=== PATIENT | female | born 1955 | race Caucasian/White ===

== ENCOUNTER → 2017-10-14 | Outpatient (CLI) | payer OTHER ==
[~2017-10-14] MED LIST: APAP650 PO; ASPIRIN325 PO; ATIVAN0.5 MG PO; CALCIUM PO; CLOBETASOL EMOL15 GM TOP; COLACE100 MG PO; ELIQUIS2.5 MG PO; HYDROCODON-ACE1 EAC7; KEFLEX500 MG PO; MAGNESIUM; METAXALONE800 MG; MULTIVITAMIN PO; NAPROSYN500 MG; NEURONTIN 300300 M1 PO; NIZORAL120 ML TOP; NORCO 10-325 T1 EACH PO; OXYCODONE HCL 55 MG PO; PERCOCET PO; PHENERGAN 25 MG25 M1 PO; PRILOSEC40 MG PO; SYNTHROID25 MCG; TRAMADOL 50 MG50 MG PO; TRIAMCINOLONE A80 G2 TOP; VITAMIN D2000 UNIT PO; XARELTO10 MG PO
== END ==
LOC: M.MRI 10-12 09:45
DX: M50.221 Other cervical disc displacement at C4-C5 level (principal); M25.78 Osteophyte, vertebrae

== ENCOUNTER → 2017-12-16 | Outpatient (CLI) | payer OTHER | LOC: M.MRI 12:32 | DX: S76.012A Strain of muscle, fascia and tendon of left hip, initial encounter (principal); M16.12 Unilateral primary osteoarthritis, left hip; M25.452 Effusion, left hip; R59.9 Enlarged lymph nodes, unspecified; Z96.642 Presence of left artificial hip joint; X58.XXXA Exposure to other specified factors, initial encounter; Y93.89 Activity, other specified; Y92.89 Other specified places as the place of occurrence of the external cause; Y99.8 Other external cause status ==

== ENCOUNTER 2018-10-26 10:15 | Emergency (ER) | payer OTHER ==
[~2018-10-26] VITALS: Ht 149.9 cm; Wt 78.9 kg
[2018-10-26 11:09] LABS: ABSOLUTE BASOPHILS 0.1 thou/uL (0.0-0.2); ABSOLUTE EOSINOPHILS 0.1 thou/uL (0.0-0.7); ABSOLUTE LYMPHOCYTES 2.3 thou/uL (0.8-5.3); ABSOLUTE MONOCYTES 0.5 thou/uL (0.0-1.2); ABSOLUTE NEUTROPHILS 5.5 thou/uL (1.6-8.1); BASOPHILS 0.9 %; EOSINOPHILS 1.5 %; HEMATOCRIT 42.6 % (37.0-47.0); HEMOGLOBIN 14.6 gm/dL (12.0-15.0); LYMPHOCYTES 27.1 %; MCH 32.5 pg (26.0-34.0); MCHC 34.2 g/dL (28.0-37.0); MCV 95.1 fL (80.0-100.0); MONOCYTES 6.4 %; MPV 7.1 fl. (7.2-11.1); NUCLEATED RBCS 0 /100WBC; PLATELET COUNT* 277 thou/uL (150-400); POLYS 64.1 %; RBC 4.48 mil/uL (4.20-5.00); RDW-CV 13.2 % (10.5-14.5); WBC 8.6 thou/uL (4.0-11.0)
[2018-10-26 11:17] LABS: URINE BILIRUBIN NEGATIVE (Negative); URINE BLOOD NEGATIVE (Negative); URINE CLARITY CLEAR; URINE COLOR YELLOW; URINE GLUCOSE-RANDOM NEGATIVE (Negative); URINE KETONES NEGATIVE (Negative); URINE LEUKOCYTES-REFLEX NEGATIVE (Negative); URINE NITRITE-REFLEX NEGATIVE (Negative); URINE PROTEIN NEGATIVE (Negative); URINE SPECIFIC GRAVITY 1.025 (1.005-1.030); URINE UROBILINOGEN 0.2 E.U./dl (0.2-1.0)
[2018-10-26] MEDS ORDERED: LIDOCAINE VISC100 ML PO (11:24)
[2018-10-26] MEDS ORDERED: CARAFATE1 GM/10 ML PO (11:24)
[2018-10-26 11:35] LABS: ALBUMIN 4.2 g/dL (3.4-5.0); CALCIUM 9.4 mg/dL (8.5-10.1); CREATININE 0.8 mg/dL (0.6-1.3); POTASSIUM 4.2 mmol/L (3.5-5.1); TOTAL BILIRUBIN 0.4 mg/dL (<0.1-1.0); TOTAL PROTEIN 7.8 g/dL (6.4-8.2)
[2018-10-26 11:49] VITALS: BP 144/70
== END 2018-10-26 11:51 | disposition home or self-care (01) ==
LOC: M.ERS 10:15
PROVIDERS: Nurse Practitioner Family
DX: S27.818A Other injury of esophagus (thoracic part), initial encounter (principal); Z88.2 Allergy status to sulfonamides; Z88.5 Allergy status to narcotic agent; Z88.8 Allergy status to other drugs, medicaments and biological substances; X58.XXXA Exposure to other specified factors, initial encounter; Y93.89 Activity, other specified; Y92.89 Other specified places as the place of occurrence of the external cause; Y99.8 Other external cause status

== ENCOUNTER → 2020-02-27 | Outpatient (CLI) | payer BC ==
[~2020-02-27] MED LIST changes: +CARAFATE1 GM/10 ML PO; +LIDOCAINE VISC100 ML PO
== END ==
LOC: M.RAD 10:40
PROVIDERS: ATTEND Family Medicine
DX: M85.89 Other specified disorders of bone density and structure, multiple sites (principal)

== ENCOUNTER → 2021-09-07 | Outpatient (CLI) | payer BC | LOC: M.RAD 08:22 | PROVIDERS: ATTEND Family Medicine | DX: M85.89 Other specified disorders of bone density and structure, multiple sites (principal) ==